=== PATIENT | female | born 1965 | race African-American/Black ===

== ENCOUNTER 2019-10-03 14:33 | Emergency (ER) | payer BC ==
[~2019-10-03] VITALS: Ht 149.9 cm; Wt 83.0 kg
[2019-10-03 15:02] VITALS: BP 130/72
== END 2019-10-03 16:07 | disposition home or self-care (01) ==
LOC: ER 14:33
DX: E11.65 Type 2 diabetes mellitus with hyperglycemia (principal); Z91.14 Patient's other noncompliance with medication regimen; I10 Essential (primary) hypertension
CPT/HCPCS: 82962; 99282

== ENCOUNTER 2019-11-21 12:04 | Emergency (ER) | payer BC ==
[~2019-11-21] VITALS: Ht 149.9 cm; Wt 82.0 kg
[2019-11-21 12:37] VITALS: BP 110/61
== END 2019-11-21 14:09 | disposition home or self-care (01) ==
LOC: ER 13:21
DX: J06.9 Acute upper respiratory infection, unspecified (principal); M79.18 Myalgia, other site
CPT/HCPCS: 99283

== ENCOUNTER 2025-02-18 12:55 | Emergency (ER) | payer BC ==
[~2025-02-18] VITALS: Ht 149.9 cm; Wt 77.5 kg
[2025-02-18 13:05] VITALS: O2SAT 99
[2025-02-18 13:09] VITALS: BP 152/85; PULSE 100; RESP 16; TEMP 36.8; O2SAT 100
== END 2025-02-18 16:38 | disposition home or self-care (01) ==
LOC: ER 12:55
DX: R20.0 Anesthesia of skin (principal); E11.9 Type 2 diabetes mellitus without complications; I10 Essential (primary) hypertension; Z98.890 Other specified postprocedural states
CPT/HCPCS: 99281

== ENCOUNTER 2025-10-16 21:44 | Emergency (ER) | payer BC ==
[~2025-10-16] VITALS: Ht 149.9 cm; Wt 83.0 kg
[2025-10-16 21:53] VITALS: O2SAT 97
[2025-10-16 23:03] LABS: CLARITY URINE CLEAR (CLEAR); COLOR URINE YELLOW (YELLOW); GLUCOSE URINE 3+ (NEGATIVE); KETONES URINE TRACE (NEGATIVE); LEUKOCYTE ESTERASE URINE NEGATIVE (NEGATIVE); NITRITE URINE NEGATIVE (NEGATIVE); OCCULT BLOOD URINE NEGATIVE (NEGATIVE); PH URINE 5.5 (4.5-8.0); PROTEIN URINE NEGATIVE (NEGATIVE); SPECIFIC GRAVITY URINE 1.044 (1.005-1.030); UROBILINOGEN URINE 0.2 E.U./dL (0.2-1.0)
[2025-10-16 23:28] LABS: BASOPHILS % 0.6 % (0.0-2.0); EOSINOPHILS % 3.5 % (0.0-5.0); HEMATOCRIT. 41.8 % (36.0-48.0); HEMOGLOBIN. 13.8 g/dL (12.0-16.0); LYMPHOCYTES % 37.0 % (20.0-50.0); MEAN PLATELET VOLUME 10.5 fl (7.4-10.4); MONOCYTES % 7.8 % (2.0-8.0); NEUTROPHILS % 51.1 % (40.0-76.0); PLATELET 281 x1000/uL (130-400); RED BLOOD CELL COUNT 4.57 mill/uL (4.2-5.4); RED CELL DISTRIBUTION WIDTH 13.2 % (11.6-14.6)
[2025-10-16 23:39] LABS: CREATININE 0.8 mg/dL (0.6-1.0)
[2025-10-16 23:40] LABS: PROTEIN TOTAL 7.9 g/dL (6.0-8.3); UREA NITROGEN BLOOD 9 mg/dL (9-23)
[2025-10-16 23:42] LABS: ASPARTATE AMINOTRANSFERASE 38 IU/L (<34); BILIRUBIN DIRECT 0.3 mg/dL (<=3.0); BILIRUBIN TOTAL 0.9 mg/dL (0.1-1.0)
[2025-10-16 23:43] LABS: BACTERIA URINE TRACE; SQUAMOUS EPITHELIAL CELL URINE 2+ /lpf (RARE/1+); YEAST URINE 1+
[2025-10-17 00:42] VITALS: BP 134/71; PULSE 90; RESP 16; TEMP 36.3; O2SAT 98
== END 2025-10-17 00:47 | disposition home or self-care (01) ==
LOC: ER 21:44
DX: E11.65 Type 2 diabetes mellitus with hyperglycemia (principal); I10 Essential (primary) hypertension; Z79.899 Other long term (current) drug therapy
CPT/HCPCS: 36415; 80048; 80076; 81003; 82010; 82962; 85025; 99283